=== PATIENT | female | born 1985 | race Hispanic/Latino ===

== ENCOUNTER 2018-04-22 09:23 | Emergency (ER) | payer BC, OTHER ==
[2018-04-22 09:35] VITALS: BMI 33.6
--- NOTE | 2018-04-22 09:44 | ED PDOC ---
Arrival/HPI - General Chief Complaint: Headache Time Seen by Provider: 04/22/18 09:45 Historian: Patient - History of Present Illness Narrative History of Present Illness (Text): 04/22/18 09:55 33 y/o female with PMH of migraines presents to the ED c/o recurrent headache x 3 days. Pt states she has had headaches since she was a child. For the last two days, patient has developed unilateral, frontal, throbbing headaches with visual aura, photophobia, phonophobia, nausea. The aura lasts approx 30 minutes prior to headache. Patient typically becomes nauseous and vomits with her headaches, but does not typically have vision changes, which she decribed as "shapes". No vision changes today. She has been taking Excedrin with some relief, last dose this morning at 4:30am. Currently has moderate right-sided throbbing, frontal h eadache. Denies fever, chills, neck pain, back pain, cough, congestion, chest pain, palpitations, syncope, SOB, dizziness, difficulty speaking, disequilibrium, weakness, numbness, paresthesias. Past Medical History - Provider Review Nursing Documentation Reviewed: Yes - Infectious Disease Hx of Infectious Diseases: None - Tetanus Immunization Tetanus Immunization: Up to Date - Past Medical History Past Medical History: No Previous - Psychiatric Hx Psychophysiologic Disorder: No Hx Depression: No Hx Emotional Abuse: No Hx Physical Abuse: No Hx Substance Use: No - Past Surgical History Past Surgical History: No Previous - Surgical History Hx Appendectomy: Yes - Anesthesia Hx Anesthesia: Yes Hx Anesthesia Reactions: No Hx Malignant Hyperthermia: No - Suicidal Assessment Feels Threatened In Home Enviroment: No Family/Social History - Physician Review Nursing Documentation Reviewed: Yes Family/Social History: No Known Family HX Smoking Status: Current Some Days Smoker Hx Alcohol Use: Yes Hx Substance Use: No Hx Substance Use Treatment: No Allergies/Home Meds Allergies/Adverse Reactions: Allergies Sulfa (Sulfonamide Antibiotics) Allergy (Verified 10/19/15 14:49) RASH Home Medications: Home Meds Medication Instructions Recorded Confirmed Aspirin/Acetaminophen/Caffeine 1 tab PO PRN PRN 04/22/18 04/22/18 [Excedrin Extra Strength Caplet] Review of Systems - Physician Review All systems were reviewed & negative as marked: Yes - Review of Systems Constitutional: Normal. absent: Fevers Eyes: Vision Changes, Photophobia. absent: Eye Pain ENT: Normal. absent: Hearing Changes, Tinnitus, Sinus Congestion Respiratory: Normal. absent: SOB, Cough Cardiovascular: Normal. absent: Chest Pain, Palpitations Gastrointestinal: Nausea, Vomiting. absent: Abdominal Pain, Constipation, Diarrhea Genitourinary Female: Normal. absent: Dysuria, Frequency, Vaginal Bleeding, Vaginal Discharge Musculoskeletal: Normal. absent: Back Pain, Neck Pain Skin: Normal. absent: Rash Neurological: Headache. absent: Dizziness, Gait Changes, Disequilibrium Endocrine: Normal Hemo/Lymphatic: Normal Psychiatric: Normal Physical Exam Vital Signs Reviewed: Yes Temperature: Afebrile Blood Pressure: Normal Pulse: Regular Respiratory Rate: Normal Appearance: Positive for: Well-Appearing, Non-Toxic, Comfortable Pain Distress: None Mental Status: Positive for: Alert and Oriented X 3 - Systems Exam Head: Present: Atraumatic, Normocephalic Pupils: Present: PERRL Extroacular Muscles: Present: EOMI Conjunctiva: Present: Normal Mouth: Present: Moist Mucous Membranes Neck: Present: Normal Range of Motion. No: Meningeal Signs, MIDLINE TENDERNESS, Lymphadenopathy Respiratory/Chest: Present: Clear to Auscultation, Good Air Exchange. No: Respiratory Distress, Accessory Muscle Use Cardiovascular: Present: Regular Rate and Rhythm, Normal S1, S2. No: Murmurs Abdomen: Present: Normal Bowel Sounds. No: Tenderness, Distention, Peritoneal Signs Upper Extremity: Present: Normal Inspection, Normal ROM, NORMAL PULSES, Neurovascularly Intact, Capillary Refill < 2s. No: Cyanosis, Edema Lower Extremity: Present: Normal Inspection, NORMAL PULSES, Normal ROM, Neurovascularly Intact, Capillary Refill < 2 s. No: Edema, Tenderness, Swelling Neurological: Present: GCS=15, CN II-XII Intact, Speech Normal, Motor Func Grossly Intact, Normal Sensory Function, Normal Cerebellar Funct, Norm Deep Tendon Reflexes, Gait Normal, Memory Normal, Other (No nystagmus; visual mulligan intact) Skin: Present: Warm, Dry, Normal Color. No: Rashes Lymphatic: No: Cervical Adenopathy Psychiatric: Present: Alert, Oriented x 3, Normal Insight, Normal Concentration, Normal Affect, Normal Mood Medical Decision Making ED Course and Treatment: 04/22/18 09:31 Initial Plan: * Head CT * IV Benadryl * IV Reglan * PO Tylenol * IVF Head CT: No intracranial pathology 10:45 Patient reports complete resolution of headache after medications. Continues to deny visual disturbance, dizziness, weakness, numbness, paresthesias. Patient tolerating PO, eating crackers and drinking water in bed without difficu lty. Ambulated to bathroom without difficulty. 11:00 Plan of care and diagnostic studies discussed with patient and mother, who verbalizes understanding. Strict instructions given regarding prescription use, importance of followup with neurology and primary doctor, and signs/symptoms to return to ED, including fever, neck pain, dizziness, syncope, worsening headache, or any other new/worsening symptoms. Patient is A&Ox3, ambulating with a steady gait, and vital signs are stable. Patient stable for discharge home. Impression Migraine Headache with Aura Re-evaluation Time: 10:45 (Denies headache) Reassessment Condition: Improved - RAD Interpretation Narrative RAD Interpretations (Text): 18 11:[address] w/o Contrast: FINDINGS: HEMORRHAGE: No intracranial hemorrhage. BRAIN: No mass effect or edema. No atrophy or chronic microvascular ischemic changes. Please note that MRI with diffusion imaging is more sensitive in the detection of acute ischemic event. VENTRICLES: No hydrocephalus. CALVARIUM: Unremarkable. PARANASAL SINUSES: Unremarkable as visualized. No significant inflammatory changes. MASTOID AIR CELLS: Unremarkable as visualized. No inflammatory changes. OTHER FINDINGS: None. IMPRESSION: No acute intracranial pathology identified. [employer] Finisher: Radiologist Disposition/Present on Arrival - Present on Arrival Any Indicators Present on Arrival: No History of DVT/PE: No History of Uncontrolled Diabetes: No Urinary Catheter: No History Surgical Site Infection Following: None - Disposition Have Diagnosis and Disposition been Completed?: Yes Diagnosis: Migraine Disposition: HOME/ ROUTINE Disposition Time: 10:45 Patient Plan: Discharge Condition: IMPROVED Discharge Instructions (ExitCare): Migraine Headache (DC) Additional Instructions: Stay hydrated, increase fluids Avoid alcohol Rest, no strenuous activity Excedrin OR Naproxen as needed for pain, do not take both Followup with neurologist within 2 days Followup with primary doctor within 2 days Return to ER for new/worsening symptoms Prescriptions: Naproxen [Naprosyn] 500 mg PO DAILY #14 tablet Referrals: Lanre Estevez MD [Staff Provider] - Follow up with primary Forms: [employer] (Czech), WORK NOTE
[2018-04-22] MEDS ORDERED: DiphenhydrAMINE 50 mg/ml Inj IVP STA (09:46)
[2018-04-22] MEDS ORDERED: Sodium Chloride 0.9% 1,000 ML IV STA (09:52)
--- NOTE | 2018-04-22 10:30 | CT ---
Date of service: 04/22/2018 PROCEDURE: CT HEAD WITHOUT CONTRAST. HISTORY: headache, vision changes COMPARISON: None available. TECHNIQUE: Axial computed tomography images were obtained through the head/brain without intravenous contrast. Radiation dose: Total exam DLP = 841.2 mGy-cm. This CT exam was performed using one or more of the following dose reduction techniques: Automated exposure control, adjustment of the mA and/or kV according to patient size, and/or use of iterative reconstruction technique. FINDINGS: HEMORRHAGE: No intracranial hemorrhage. BRAIN: No mass effect or edema. No atrophy or chronic microvascular ischemic changes.Please note that MRI with diffusion imaging is more sensitive in the detection of acute ischemic event. VENTRICLES: No hydrocephalus. CALVARIUM: Unremarkable. PARANASAL SINUSES: Unremarkable as visualized. No significant inflammatory changes. MASTOID AIR CELLS: Unremarkable as visualized. No inflammatory changes. OTHER FINDINGS: None. IMPRESSION: No acute intracranial pathology identified.
[2018-04-22 11:38] VITALS: BP 129/77; PULSE 77; RESP 16; TEMP 98.2; O2SAT 96
== END 2018-04-22 11:31 | disposition home or self-care (01) ==
LOC: ED 09:23
DX: G43.909 Migraine, unspecified, not intractable, without status migrainosus (principal)
CPT/HCPCS: 70450; 96361; 96374; 96375; 99285; J1200; J2765; J7030